=== PATIENT | male | born 1990 | race Caucasian/White ===

== ENCOUNTER 2016-06-04 19:56 | Emergency (ER) | payer MEDICAID ==
[~2016-06-04] VITALS: Ht 172.7 cm; Wt 72.6 kg
[2016-06-04 20:00] VITALS: BP 152/55; PULSE 100; RESP 18; TEMP 98.3; O2SAT 99
--- NOTE | 2016-06-04 20:00 | NUR ---
Patient to ER bed 5 to gown for evaluation. Side rails up. Report given to Haroon MCCALL.
--- NOTE | 2016-06-04 20:15 | NUR ---
Pt BIB ambulance with c/o being cold and some body aches, stated he jumped to the [place] to swim today, did not drowse.+ h/o meth use per pt. A&Ox4, denies SOB or chestpain, denies N/V/D. skin intact. Will continue to monitor
--- NOTE | 2016-06-04 20:45 | NUR ---
MD schaefer at bedside examining pt
[2016-06-04 21:30] VITALS: BP 142/76; PULSE 92; RESP 16; TEMP 98.3; O2SAT 98
--- NOTE | 2016-06-04 21:30 | NUR ---
Patient given written and verbal discharge instructions and verbalizes understanding. ER MD Zaldivar discussed with patient the results and treatment provided. Patient in stable condition. ID arm band removed. No rx given. Patient educated on pain management and to follow up with PMD. Pain Scale 0/10 Opportunity for questions provided and answered.
== END 2016-06-04 21:30 | disposition home or self-care (01) ==
LOC: SED 19:56
DX: F15.10 Other stimulant abuse, uncomplicated (principal)
CPT/HCPCS: 99283; J7030